=== PATIENT | female | born 1975 | race Caucasian/White ===

== ENCOUNTER 2020-08-13 15:09 | Outpatient (CLI) | payer OTHER ==
[2020-08-13] MEDS ORDERED: ROSU40TA PO (15:31)
== END 2020-08-13 23:59 | disposition home or self-care (01) ==
LOC: STAR 15:09
PROVIDERS: ATTEND Orthopaedic Surgery
DX: Z20.828 Contact with and (suspected) exposure to other viral communicable diseases (principal); M75.41 Impingement syndrome of right shoulder; M25.511 Pain in right shoulder; S43.431A Superior glenoid labrum lesion of right shoulder, initial encounter; X58.XXXA Exposure to other specified factors, initial encounter; Y93.89 Activity, other specified; Y92.89 Other specified places as the place of occurrence of the external cause; Y99.8 Other external cause status
CPT/HCPCS: 87635

== ENCOUNTER 2020-08-18 06:43 | Day surgery (SDC) | payer OTHER ==
[~2020-08-18] VITALS: Ht 165.1 cm; Wt 77.0 kg
[~2020-08-18 06:43] MED LIST: EPINEPHRINE 1 MG/ML, 1ML ONE; LIDOCAINE/PF 1%, 30ML ONE; ROSU40TA PO
[2020-08-18 07:16] VITALS: BP 124/81
[2020-08-18] MEDS ORDERED: LACTATED RINGERS 1,000 ML IV SCH (07:18)
[2020-08-18] MEDS ORDERED: CHLORHEXIDINE 15 ML UDC MM STA (07:18)
[2020-08-18] MEDS ORDERED: CLINDAMYCIN 150 MG/ML, 6ML ONE (07:33)
[2020-08-18 07:44] LABS: HCG UR SG 1.019 (1.003-1.030)
[2020-08-18] MEDS ORDERED: FENTANYL PF 250 MCG/5ML ONE (08:00)
[2020-08-18] MEDS ORDERED: MIDAZOLAM 1 MG/ML, 2ML ONE (08:00)
[2020-08-18] MEDS ORDERED: PROPOFOL 10 MG/ML, 20ML ONE (08:04)
[2020-08-18] MEDS ORDERED: DEXAMETHASONE 4 MG/ML, 1ML ONE (08:35)
[2020-08-18] MEDS ORDERED: ONDANSETRON 2MG/ML, 2ML ONE (08:49)
[2020-08-18] MEDS ORDERED: SUCCINYLCHOLINE 20 MG/ML, 10ML ONE (08:49)
[2020-08-18] MEDS ORDERED: CEFAZOLIN 1,000 MG ONE (08:49)
[2020-08-18] MEDS ORDERED: ROCURONIUM 10 MG/ML,10ML ONE (08:49)
[2020-08-18] MEDS ORDERED: FENTANYL PF 100 MCG/2ML IV PRN (09:30)
[2020-08-18] MEDS ORDERED: DIAZEPAM 5 MG/ML, 2ML IVPush PRN (09:30)
[2020-08-18] MEDS ORDERED: ALBUTEROL SULFATE 2.5 MG/3 ML NPPB PRN (09:30)
[2020-08-18] MEDS ORDERED: MIDAZOLAM 1 MG/ML, 2ML IV PRN (09:30)
[2020-08-18] MEDS ORDERED: MEPERIDINE/PF 25MG/0.5ML IVPush PRN (09:30)
[2020-08-18] MEDS ORDERED: DIPHENHYDRAMINE 50 MG/ML, 1ML IVPush PRN ×2 (09:30)
[2020-08-18] MEDS ORDERED: ACETAMINOPHEN 325 MG TABLET PO PRN (09:30)
[2020-08-18] MEDS ORDERED: LABETALOL 5MG/ML, 20ML IV PRN (09:30)
[2020-08-18] MEDS ORDERED: EPHEDRINE 50 MG/ML, 1ML IVPush PRN (09:30)
[2020-08-18] MEDS ORDERED: hydrALAzine 20 MG/ML, 1ML IV PRN (09:30)
[2020-08-18] MEDS ORDERED: ONDANSETRON 2MG/ML, 2ML IVPush PRN (09:30)
[2020-08-18] MEDS ORDERED: PROMETHAZINE 25 MG/ML, 1ML IVPush PRN (09:30)
[2020-08-18] MEDS ORDERED: PROMETHAZINE 12.5 MG SUPP PR PRN (09:30)
[2020-08-18] MEDS ORDERED: OXYcodone 5 MG/5 ML ORAL.SOL UDC PO PRN (09:30)
[2020-08-18] MEDS ORDERED: HYDROmorphone 1 MG/ML, 1ML INJ IVPush PRN (09:30)
[2020-08-18] MEDS ORDERED: MEPERIDINE/PF 25MG/ML,1ML ONE (10:39)
[2020-08-18] MEDS ORDERED: PROMETHAZINE 25 MG/ML, 1ML ONE (10:56)
== END 2020-08-18 12:15 | disposition home or self-care (01) ==
LOC: OUT 06:43
PROVIDERS: ATTEND Orthopaedic Surgery
DX: S43.431A Superior glenoid labrum lesion of right shoulder, initial encounter (principal); M19.011 Primary osteoarthritis, right shoulder; M75.21 Bicipital tendinitis, right shoulder; M65.811 Other synovitis and tenosynovitis, right shoulder; M75.41 Impingement syndrome of right shoulder; G89.18 Other acute postprocedural pain; Z88.0 Allergy status to penicillin; Z88.8 Allergy status to other drugs, medicaments and biological substances; Z82.61 Family history of arthritis; Z82.49 Family history of ischemic heart disease and other diseases of the circulatory system; X58.XXXA Exposure to other specified factors, initial encounter; Y93.89 Activity, other specified; Y92.89 Other specified places as the place of occurrence of the external cause; Y99.8 Other external cause status
CPT/HCPCS: 23430; 29823; 29824; 29826; 64415; 81025; C1713; J0171; J0330; J0690; J1100; J2175; J2250; J2405; J2550; J2704; J3010; J7120